=== PATIENT | female | born 2000 | race African-American/Black ===

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

== ENCOUNTER 2023-05-29 10:04 | Emergency (ER) | payer BC ==
[2023-05-29 11:56] VITALS: BP 125/80; PULSE 78; RESP 16; TEMP 98; BMI 34.4
== END 2023-05-29 10:53 | disposition home or self-care (01) ==
LOC: FER 10:04
DX: L30.9 Dermatitis, unspecified (principal); L29.9 Pruritus, unspecified; R21 Rash and other nonspecific skin eruption
CPT/HCPCS: 99283-25